=== PATIENT | male | born 1980 | race Hispanic/Latino ===

== ENCOUNTER 2017-09-30 12:22 | Emergency (ER) | payer SELFPAY | END 2017-09-30 13:22 | disposition home or self-care (01) | LOC: ERS 12:22 | DX: L03.116 Cellulitis of left lower limb (principal); F17.210 Nicotine dependence, cigarettes, uncomplicated | CPT/HCPCS: 99282 ==

== ENCOUNTER 2017-11-28 11:45 | Emergency (ER) | payer SELFPAY | END 2017-11-28 12:43 | disposition home or self-care (01) | LOC: ERS 11:45 | DX: S10.96XA Insect bite of unspecified part of neck, initial encounter (principal); F17.210 Nicotine dependence, cigarettes, uncomplicated | CPT/HCPCS: 99282 ==

== ENCOUNTER 2018-03-20 21:53 | Emergency (ER) | payer SELFPAY ==
[2018-03-20 23:14] LABS: #Basophils 0.1 thou/uL (0.0-0.2); #Eosinphils 0.2 thou/uL (0.0-0.7); #Lymphocytes 2.8 thou/uL (1.20-3.40); #Monocytes 1.1 thou/uL (0.11-0.59); #Neutrophils 9.6 thou/uL (1.40-6.50); %Basophils 0.6 % (0.0-1.0); %Eosinophils 1.5 % (0.0-10.0); %Lymphocytes 20.1 % (21.0-51.0); %Monocytes 8.1 % (0.0-10.0); %Neutrophils 69.7 % (42.0-75.0); Hemoglobin 16.5 g/dL (14.0-18.0); Mean Corpuscular HGB CONC 35.1 g/dL (32.0-36.0); Mean Corpuscular Hemoglobin 33.2 pg (27.0-31.0); Mean Corpuscular Volume 94.6 fL (78.0-98.0); Mean Platelet Volume 6.5 fL (7.4-10.4); Platelet Count 289 thou/uL (130-400); RBC Distribution Width 12.1 % (11.5-14.5); Red Blood Cell (RBC) Count 4.98 mill/uL (4.70-6.10); White Blood Cell (WBC) Count 13.8 thou/uL (4.8-10.8)
[2018-03-20 23:35] LABS: ALT (SGPT) 41 U/L (8-55); AST (SGOT) 35 U/L (5-34); Acetaminophen Less than 6.0 mcg/mL (10.0-30.0); Albumin 4.4 g/dL (3.5-5.0); Alcohol Less than 10 mg/dL (Less than 10); Alkaline Phosphatase 61 U/L (40-150); Anion Gap 12 mmol/L (10-20); BUN (Urea Nitrogen) 11 mg/dL (8.9-20.6); Bilirubin, Total 0.8 mg/dL (0.2-1.2); CK (CPK) 115 U/L (30-200); Calc. Creatinine Clearance 0 mL/min (70-130); Calcium 9.3 mg/dL (7.8-10.44); Carbon Dioxide 26 mmol/L (22-29); Chloride 105 mmol/L (98-107); Estimated GFR-MDRD 75; Globulin 3.5 g/dL (2.4-3.5); Glucose 95 mg/dL (70-105); Potassium 3.5 mmol/L (3.5-5.1); Protein, Total 7.9 g/dL (6.0-8.3); Salicylate Less than 8.0 mg/dL (15.0-30.0); Sodium 139 mmol/L (136-145)
[2018-03-20] MEDS ORDERED: Multivitamins, Adult 10 ML, Thiamine HCl 100 MG, Folic Acid 1 MG in Dextrose 5 %-0.45 %... IV SCH (23:59)
[2018-03-21 03:07] LABS: Amphetamine Not Detected (NotDetected); Barbiturates Screen Not Detected (NotDetected); Benzodiazepine Screen Not Detected (NotDetected); Cocaine Metabolite Screen Not Detected (NotDetected); Medtox Control Line Valid? VALID (VALID); Medtox Reader # READER 4; Methadone Not Detected (NotDetected); Methamphetamine Not Detected (NotDetected); Opiate Screen Not Detected (NotDetected); Oxycodone Screen Not Detected (NotDetected); Phencyclidine (PCP) Not Detected (NotDetected); THC/Cannabinoid Screen Not Detected (NotDetected); Tricyclic Screen Not Detected (NotDetected)
[2018-03-21] MEDS ORDERED: Nicotine 14 MG PATCH TOP SCH (10:00)
== END 2018-03-23 21:06 ==
LOC: ERS 21:53
DX: F32.9 Major depressive disorder, single episode, unspecified (principal); F10.20 Alcohol dependence, uncomplicated; F14.10 Cocaine abuse, uncomplicated; F17.210 Nicotine dependence, cigarettes, uncomplicated
CPT/HCPCS: 36415; 80053; 80306; 80307; 82550; 84443; 85025; 96365; 96366; J3411; J7042

== ENCOUNTER 2018-11-14 10:14 | Emergency (ER) | payer SELFPAY ==
--- NOTE | 2018-11-14 11:01 | RAD ---
LEFT FOOT THREE VIEWS: HISTORY: Left foot pain and left toe swelling for one day. FINDINGS/IMPRESSION: No fracture, dislocation, or other significant acute osseous abnormality. POS: C
== END 2018-11-14 12:42 | disposition home or self-care (01) ==
LOC: ERS 10:14
DX: L03.032 Cellulitis of left toe (principal); F17.210 Nicotine dependence, cigarettes, uncomplicated; I20.9 Angina pectoris, unspecified

== ENCOUNTER 2019-02-14 13:36 | Emergency (ER) | payer SELFPAY | END 2019-02-14 15:53 | disposition left against medical advice (07) | LOC: ERS 13:36 | DX: Z53.21 Procedure and treatment not carried out due to patient leaving prior to being seen by health care provider (principal) ==

== ENCOUNTER 2019-02-25 10:29 | Emergency (ER) | payer SELFPAY ==
--- NOTE | 2019-02-25 11:30 | RAD ---
PA AND LATERAL VIEWS CHEST: Date: 02/25/19 HISTORY: Fall. Shortness of breath. FINDINGS: The heart size is normal. The lungs are well expanded without focal areas of consolidation, pneumotho races, or pleural effusions. No acute osseous abnormalities are seen. IMPRESSION: No acute process. POS: OFF
== END 2019-02-25 12:33 | disposition home or self-care (01) ==
LOC: ERS 10:29
DX: S29.9XXA Unspecified injury of thorax, initial encounter (principal); F17.210 Nicotine dependence, cigarettes, uncomplicated; W07.XXXA Fall from chair, initial encounter
CPT/HCPCS: 71046